=== PATIENT | female | born 1960 | race African-American/Black ===

== ENCOUNTER 2017-04-25 01:36 | Emergency (ER) | payer MEDICAID, MEDICARE ==
[~2017-04-25] VITALS: Ht 165.1 cm; Wt 98.0 kg
[2017-04-25] MEDS ORDERED: KETOROLAC 60MG/2ML VIAL IM ONE (02:15)
[2017-04-25 04:26] VITALS: BP 182/95
== END 2017-04-25 05:11 | disposition home or self-care (01) ==
LOC: ER 02:41
DX: R05 Cough (principal); Z87.440 Personal history of urinary (tract) infections
CPT/HCPCS: 71010; 81025; 96372; 99283; J1885

== ENCOUNTER 2018-07-31 15:08 | Emergency (ER) | payer MEDICARE ==
[~2018-07-31] VITALS: Ht 157.5 cm; Wt 80.0 kg
[2018-07-31] MEDS ORDERED: SODIUM CHLORIDE 0.9% 1,000 ML IV ONE (16:35)
[2018-07-31] MEDS ORDERED: CLONIDINE 0.2MG TABLET PO ONE (17:00)
[2018-07-31 18:49] LABS: BASOPHILS % 1.4 % (0.0-2.0); EOSINOPHILS % 1.5 % (0.0-5.0); HEMATOCRIT. 38.1 % (36.0-48.0); HEMOGLOBIN. 13.1 g/dL (12.0-16.0); LYMPHOCYTES % 27.9 % (20.0-50.0); MEAN CORPUSCULAR HEMOGLOBIN 31.8 pg (28.0-32.0); MEAN CORPUSCULAR VOLUME 92.8 fL (81.0-99.0); MEAN PLATELET VOLUME 10.2 fl (7.4-10.4); MONOCYTES % 8.5 % (2.0-8.0); NEUTROPHILS % 60.7 % (40.0-76.0); PLATELET 287 x1000/uL (130-400); RED BLOOD CELL COUNT 4.11 mill/uL (4.2-5.4); RED CELL DISTRIBUTION WIDTH 13.5 % (11.6-14.6)
[2018-07-31 18:56] LABS: CHLORIDE 110 mEq/L (98-107); ETHANOL BLOOD < 10 mg/dL
[2018-07-31 19:01] LABS: D-DIMER 0.19 mg/L FEU (<0.50); PARTIAL THROMBOPLASTIN TIME 24.6 sec (23.4-31.0); PROTHROMBIN TIME 9.7 sec (9.1-11.1)
[2018-07-31] MEDS ORDERED: HYDRALAZINE 20MG/ML VIAL IV ONE (19:30)
[2018-07-31 20:21] LABS: CLARITY URINE CLEAR (CLEAR); COLOR URINE YELLOW (YELLOW); KETONES URINE NEGATIVE (NEGATIVE); LEUKOCYTE ESTERASE URINE NEGATIVE (NEGATIVE); NITRITE URINE NEGATIVE (NEGATIVE); OCCULT BLOOD URINE NEGATIVE (NEGATIVE); PROTEIN URINE NEGATIVE (NEGATIVE); SPECIFIC GRAVITY URINE 1.005 (1.005-1.030); UROBILINOGEN URINE 0.2 E.U./dL (0.2-1.0)
[2018-07-31 20:49] LABS: *BARBITURATES SCREEN URINE NEGATIVE (NEGATIVE); CANNABINOID URINE SCREEN PRESUMTIVE POSITIVE (NEGATIVE); METHADONE URINE SCREEN NEGATIVE (NEGATIVE); OPIATES URINE SCREEN NEGATIVE (NEGATIVE); PHENCYCLIDINE URINE SCREEN NEGATIVE (NEGATIVE)
[2018-07-31 20:50] LABS: *AMPHETAMINES SCREEN URINE NEGATIVE (NEGATIVE); *BENZODIAZEPINES SCREEN URINE NEGATIVE (NEGATIVE); *COCAINE SCREEN URINE PRESUMTIVE POSITIVE (NEGATIVE)
[2018-07-31 21:02] VITALS: BP 173/71
== END 2018-07-31 21:27 | disposition home or self-care (01) ==
LOC: ER 15:08
DX: R55 Syncope and collapse (principal); I10 Essential (primary) hypertension; R94.31 Abnormal electrocardiogram [ECG] [EKG]; F17.200 Nicotine dependence, unspecified, uncomplicated
CPT/HCPCS: 36415; 71045; 80053; 80305; 81003; 83880; 84484; 85025; 85379; 85610; 85730; 93005; 96361; 96374; 99285; G0482; J0360; J7030